=== PATIENT | male | born 1955 | race Hispanic/Latino ===

== ENCOUNTER 2024-01-07 07:24 | Day surgery (SDC) | payer OTHER ==
[~2024-01-07] VITALS: Ht 175.3 cm; Wt 127.0 kg
[2024-01-07] VITALS (11 sets, daily range): BP systolic 135–164; BP diastolic 65–94; PULSE 43–62; RESP 15–16; TEMP 96.6–97.8
[2024-01-07] MEDS ORDERED: TELM40TA8 PO (08:04)
[2024-01-07] MEDS ORDERED: FURO20TA4 PO (08:04)
[2024-01-07] MEDS: 0.9%NACL 1000ML 1,000 ML IV ONE (08:10)
[2024-01-07] MEDS ORDERED: proPOFol 10 MG/ML 20ML VIAL IV ONE (08:58)
== END 2024-01-07 10:17 | disposition home or self-care (01) ==
LOC: ENDO 07:24 → DAH 07:43 → ENDO 10:17
PROVIDERS: ATTEND Internal Medicine Gastroenterology
DX: R13.10 Dysphagia, unspecified (principal); R10.13 Epigastric pain; K29.70 Gastritis, unspecified, without bleeding; B96.81 Helicobacter pylori [H. pylori] as the cause of diseases classified elsewhere; K25.9 Gastric ulcer, unspecified as acute or chronic, without hemorrhage or perforation; K31.89 Other diseases of stomach and duodenum; K92.1 Melena; J44.9 Chronic obstructive pulmonary disease, unspecified; I10 Essential (primary) hypertension; E66.01 Morbid (severe) obesity due to excess calories; K60.329 Anal fistula, complex, unspecified; Z79.899 Other long term (current) drug therapy
CPT/HCPCS: 43239; J7030; J2704; A4620; A4215; J3490